=== PATIENT | male | born 1945 | race American Indian/Alaskan Native ===

== ENCOUNTER 2016-04-24 18:46 | Inpatient (IN) | payer MEDICARE ==
--- NOTE | 2016-04-24 20:43 | Emergency Department Report ---
Chief Complaint: Weakness Stated Complaint: LT LEG PAIN Time Seen by Provider: 04/24/16 20:40 - HPI History of Present Illness: Patient here complaining the left chest pressure and left leg pain. He reports that he's had several hip replacement and he has bursitis and arthritis. Patient also has history of cardiac disease with stent placement. He said he is always short of breath and takes medication for angina to include suture glycerin and indoor. He denies any nausea or vomiting. No radiation of pain to neck, face or arms. - ROS Review of Systems: All systems are negative unless stated in HPI above. - Exam Vital Signs: Vital Signs 04/24/16 20:25 Temperature 97.9 F Pulse Rate 82 Blood Pressure 114/56 O2 Sat by Pulse 100 Oximetry Physical Exam: GEN: This is a 70-year-old male well-nourished well-developed in no acute distress. CV: Is 1, S2. Regular rate and rhythm. EXT: No clubbing, cyanosis or edema. Pulses. MSE screening note: Focused history and physical exam performed. Due to findings the following was ordered:see [facility] ED Medical Decision Making - Medical Decision Making Medical decision making: Patient seen by provider in triage area. Appropriate protocol activated and patient to main ED to be seen by physician. ED Disposition for MSE Condition: Stable
[2016-04-24 21:36] LABS: Basophils % (Auto) 0.6 % (0.0-1.8); Eosinophils % (Auto) 1.7 % (0.0-4.3); Hemoglobin 11.9 gm/dl (11.8-15.2); Mean Corpuscular HGB Conc 34 % (32-34); Mean Corpuscular Hemoglobin 36 pg (28-32); Mean Corpuscular Volume 105 fl (84-94); Platelet Count 126 K/mm3 (140-440); Red Blood Count 3.33 M/mm3 (3.65-5.03); Red Cell Distribution Width 15.7 % (13.2-15.2); White Blood Count 5.3 K/mm3 (4.5-11.0)
[2016-04-24 22:03] LABS: BUN/Creatinine Ratio 14.16; Blood Urea Nitrogen 17 mg/dL (9-20); Calcium 8.4 mg/dL (8.4-10.2); Carbon Dioxide 22 mmol/L (22-30); Chloride 104.3 mmol/L (98-107); Glucose 146 mg/dL (75-100); Sodium 139 mmol/L (137-145)
[2016-04-24 22:04] LABS: Anion Gap 17 mmol/L
[2016-04-25] MEDS ORDERED: PLAVIX PO ONE (08:38)
[2016-04-25] MEDS ORDERED: NITRO-BID 2% TP ONE (08:41)
[2016-04-25] MEDS ORDERED: BABY ASPIRIN PO ONE (08:41)
--- NOTE | 2016-04-25 08:41 | Emergency Department Report ---
ED Chest Pain HPI - General Chief Complaint: Chest Pain Stated Complaint: chest pain Time Seen by Provider: 04/24/16 20:40 Source: patient Mode of arrival: Ambulatory Limitations: No Limitations - History of Present Illness Initial Comments: This patient arrives to the emergency department for evaluation of chest pain. He describes a midsternal tightness which resolves with nitroglycerin although the pain comes back in about 20 or 30 minutes. He states he's used multiple as many as that doesn't nitroglycerin over the course of the last day. He states that he has mild residual chest pain only at this point. He is status post 2 stents in 2015. 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 He does not see a display manager affiliated with [place] or [facility] as far as I can tell. In any case he has a few peripheral complaints to include chronic knee pain bilaterally but no calf or leg swelling. He's had no recent travel. He is taking his Plavix and aspirin. He does get spontaneous bruising and has one on his right upper arm. He does report weight loss of 15 pounds. He states occasionally he sees some rectal bleeding but not recently. He has never had a colonoscopy. Although the triage note says left side weakness. The patient denies this completely to me. He has no symptoms suggestive of a focal neurological syndrome. -: Gradual, days(s) (2-3 days) Onset: during rest Pain Location: substernal Pain Radiation: none Severity: moderate Quality: tightness Consistency: now resolved (now almost resolved) Improves With: nothing Worsens With: nothing re: denies: nausea, vomting, diaphoresis, dyspnea, sense of impending doom Other Symptoms: denies: cough, fever, syncope, rash, acid taste in mouth, leg swelling, palpitations, burping Treatments Prior to Arrival: aspirin - Related Data Previous Rx's Medication Instructions Recorded Last Taken Type ALBUTEROL Inhaler [ProAir HFA 1 puff PO DAILY #30 inha 09/01/15 Unknown Rx Inhaler] Arformoterol Nebu [Brovana Nebu] 15 mcg IH Q12HRT #30 day 09/01/15 Unknown Rx Aspirin 81 mg PO DAILY #30 09/01/15 Unknown Rx AtorvaSTATin [Lipitor] 40 mg PO DAILY #30 tablet 09/01/15 Unknown Rx Budesonide [Pulmicort Respules] 0.5 mg IH Q12HRT #30 day 09/01/15 Unknown Rx Carvedilol [Coreg] 25 mg PO BID #60 tablet 09/01/15 Unknown Rx Clopidogrel [Plavix] 75 mg PO QDAY #30 tablet 09/01/15 Unknown Rx Famotidine [Pepcid] 20 mg PO BID #60 tablet 09/01/15 Unknown Rx Fluticasone/Salmeterol [Advair 1 l PO DAILY #30 disk.w.dev 09/01/15 Unknown Rx Diskus 100-50 mcg] ISOSORBIDE MONOnitrate [Imdur ER] 60 mg PO QDAY #30 tablet 09/01/15 Unknown Rx Isosorbide Mononitrate 50 mg PO DAILY #30 tablet 09/01/15 Unknown Rx Lisinopril [Zestril TAB] 40 mg PO QDAY #30 tablet 09/01/15 Unknown Rx Spiriva Respimat 1 tab PO DAILY #1 unit 09/01/15 Unknown Rx Thiamine [Vitamin B-1] 100 mg PO QDAY #30 tablet 09/01/15 Unknown Rx oxyCODONE /ACETAMINOPHEN [Percocet 1 tab PO Q4H PRN #30 tablet 09/01/15 Unknown Rx 5/325 mg] Allergies Allergy/AdvReac Type Severity Reaction Status Date / Time No Known Allergies Allergy Unverified 04/19/15 22:57 ÓSCAR score - Óscar Score Age > 65: (1) Yes Aspirin use within the Past 7 Days: (1) Yes 3 or more CAD Risk Factors: (1) Yes 2 or more Angina events in past 24 hrs: (1) Yes Known CAD with more than 50% Stenosis: (1) Yes Elevated Cardiac Markers: (0) No ST Deviation Greater than 0.5mm: (0) No ÓSCAR Score: 5 ED Review of Systems ROS: Stated complaint: LT LEG PAIN Other details as noted in HPI Constitutional: other (weight loss). denies: chills, fever Eyes: denies: eye pain, eye discharge, vision change ENT: denies: ear pain, throat pain Respiratory: denies: cough, shortness of breath, wheezing Cardiovascular: chest pain. denies: palpitations Endocrine: no symptoms reported Gastrointestinal: hematochezia. denies: abdominal pain, nausea, diarrhea Genitourinary: denies: urgency, dysuria Musculoskeletal: other. denies: back pain, joint swelling, arthralgia Skin: other (chronic knee pain spontaneous ecchymoses on antiplatelet). denies : rash, lesions Neurological: denies: headache, weakness, paresthesias Psychiatric: denies: anxiety, depression Hematological/Lymphatic: denies: easy bleeding, easy bruising ED Past Medical Hx - Past Medical History Hx Hypertension: Yes Hx Heart Attack/AMI: Yes Hx Arthritis: Yes Hx Headaches / Migraines: No Hx Seizures: No Hx COPD: Yes Hx Dementia: No Additional medical history: Hep C, angina - Surgical History Hx Coronary Stent: Yes (2 placed at 2 separate times in 2014) - Social History Smoking Status: Current Every Day Smoker - Medications Home Medications: Home Medications Medication Instructions Recorded Confirmed Last Taken Type ALBUTEROL Inhaler [ProAir HFA 1 puff PO DAILY #30 inha 09/01/15 Unknown Rx Inhaler] Arformoterol Nebu [Brovana Nebu] 15 mcg IH Q12HRT #30 day 09/01/15 Unknown Rx Aspirin 81 mg PO DAILY #30 09/01/15 Unknown Rx AtorvaSTATin [Lipitor] 40 mg PO DAILY #30 tablet 09/01/15 Unknown Rx Budesonide [Pulmicort Respules] 0.5 mg IH Q12HRT #30 day 09/01/15 Unknown Rx Carvedilol [Coreg] 25 mg PO BID #60 tablet 09/01/15 Unknown Rx Clopidogrel [Plavix] 75 mg PO QDAY #30 tablet 09/01/15 Unknown Rx Famotidine [Pepcid] 20 mg PO BID #60 tablet 09/01/15 Unknown Rx Fluticasone/Salmeterol [Advair 1 l PO DAILY #30 disk.w.dev 09/01/15 Unknown Rx Diskus 100-50 mcg] ISOSORBIDE MONOnitrate [Imdur ER] 60 mg PO QDAY #30 tablet 09/01/15 Unknown Rx Isosorbide Mononitrate 50 mg PO DAILY #30 tablet 09/01/15 Unknown Rx Lisinopril [Zestril TAB] 40 mg PO QDAY #30 tablet 09/01/15 Unknown Rx Spiriva Respimat 1 tab PO DAILY #1 unit 09/01/15 Unknown Rx Thiamine [Vitamin B-1] 100 mg PO QDAY #30 tablet 09/01/15 Unknown Rx oxyCODONE /ACETAMINOPHEN [Percocet 1 tab PO Q4H PRN #30 tablet 09/01/15 Unknown Rx 5/325 mg] ED Physical Exam - General Limitations: No Limitations General appearance: alert, in no apparent distress - Head Head exam: Present: atraumatic, normocephalic. Absent: normal inspection - Eye Eye exam: Present: normal appearance, PERRL, EOMI. Absent: scleral icterus - ENT ENT exam: Present: normal exam, mucous membranes moist - Neck Neck exam: Present: normal inspection - Respiratory Respiratory exam: Present: normal lung sounds bilaterally. Absent: respiratory distress - Cardiovascular Cardiovascular Exam: Present: regular rate, normal rhythm. Absent: systolic murmur, diastolic murmur, rubs, gallop - GI/Abdominal GI/Abdominal exam: Present: soft, normal bowel sounds. Absent: distended, tenderness, guarding, rebound, rigid - Rectal Rectal exam: Present: deferred - Extremities Exam Extremities exam: Present: normal inspection - Back Exam Back exam: Present: normal inspection - Neurological Exam Neurological exam: Present: alert, oriented X3, CN II-XII intact. Absent: motor sensory deficit - Psychiatric Psychiatric exam: Present: normal affect, normal mood - Skin Skin exam: Present: warm, dry, intact, normal color. Absent: rash ED Course Vital Signs 04/24/16 04/24/16 04/25/16 20:25 20:42 01:32 Temperature 97.9 F 97.9 F Pulse Rate 82 70 Respiratory 18 18 Rate Blood Pressure 114/56 Blood Pressure 155/76 [Left] O2 Sat by Pulse 100 97 Oximetry 04/25/16 05:51 Temperature 97.4 F L Pulse Rate 64 Respiratory 18 Rate Blood Pressure Blood Pressure 139/79 [Left] O2 Sat by Pulse 97 Oximetry - Reevaluation(s) Reevaluation #1: The patient stated that he was admitted at [facility] and January. He tells me his troponins were elevated. He denies having a stress test or cardiac catheterization. Patient is also referring a 15 pound weight loss as well as intermittent rectal bleeding. I'm going to continue his Plavix a baby aspirin and hold off on Lovenox for now. 04/25/16 08:50 ED Medical Decision Making - Lab Data Result diagrams: 04/24/16 21:20 04/24/16 21:20 Laboratory Results - last 24 hr 04/24/16 04/24/16 04/24/16 21:20 21:20 23:09 WBC 5.3 RBC 3.33 L Hgb 11.9 Hct 35.0 L MCV 105 H MCH 36 H MCHC 34 RDW 15.7 H Plt Count 126 L Lymph % (Auto) 28.8 [place] % (Auto) 9.6 H Eos % (Auto) 1.7 Baso % (Auto) 0.6 Lymph # 1.5 [place] # 0.5 Eos # 0.1 Baso # 0.0 Seg Neutrophils % 59.3 Seg Neutrophils # 3.2 Sodium 139 Potassium 4.0 Chloride 104.3 Carbon Dioxide 22 Anion Gap 17 BUN 17 Creatinine 1.2 Estimated GFR > 60 BUN/Creatinine Ratio 14.16 Glucose 146 H Calcium 8.4 Troponin T < 0.010 < 0.010 04/25/16 02:52 WBC RBC Hgb Hct MCV MCH MCHC RDW Plt Count Lymph % (Auto) [place] % (Auto) Eos % (Auto) Baso % (Auto) Lymph # [place] # Eos # Baso # Seg Neutrophils % Seg Neutrophils # Sodium Potassium Chloride Carbon Dioxide Anion Gap BUN Creatinine Estimated GFR BUN/Creatinine Ratio Glucose Calcium Troponin T < 0.010 - EKG Data -: EKG Interpreted by Me EKG shows normal: sinus rhythm, axis, intervals, QRS complexes, ST-T waves - EKG Data Interpretation: nonspecific ST-T wave zach (motion artifact J-point elevation, no acute ischemic changes) - Radiology Data interpreted by me: Chest x-ray shows no acute process Critical care attestation.: If time is entered above; I have spent that time in minutes in the direct care of this critically ill patient, excluding procedure time. ED Disposition Clinical Impression: Unstable angina, Weight loss, Rectal bleeding Disposition: OP ADMITTED IP TO THIS HOSP Is pt being admited?: Yes Does the pt Need Aspirin: Yes Condition: Stable Instructions: Angina (ED) Time of Disposition: 08:52
[2016-04-25] MEDS ORDERED: PERCOCET 5/325 PO PRN (09:08)
--- NOTE | 2016-04-25 09:14 | History and Physical Report ---
History of Present Illness Date of examination: 04/25/16 Date of admission: 04/25/16 Chief complaint: Left-sided Chest pain for the last 2 days History of present illness: Very pleasant 70-year-old male patient with significant past medical history of coronary artery disease status post PCI, hypertension dyslipidemia history of COPD Presented to the emergency room with left-sided chest pain of 1-2 days duration Chest pain is intermittent, presented to squeezing type, greats between 3-4/10, not associated with nausea vomiting or diaphoresis No radiation, denies orthopnea paroxysmal nocturnal dyspnea, no aggravating and relieving symptoms Denies nausea vomiting or abdominal pain Patient is on aspirin and Plavix complaints complaints with his medications Patient also gets some vague history of rectal bleeding in the past however denies rectal bleeding now Never had colonoscopy in the past Hemo-dynamically stable, H&H is stable Past History Past Medical History: arthritis, CAD, COPD, hypertension, hyperlipidemia Past Surgical History: total hip replacement, PTCA, Other (cardiac catheterization/stent placement) Social history: lives with family, full code. denies: smoking, alcohol abuse, prescription drug abuse Family history: hypertension Medications and Allergies Allergies Allergy/AdvReac Type Severity Reaction Status Date / Time No Known Allergies Allergy Unverified 04/19/15 22:57 Home Medications Medication Instructions Recorded Confirmed Last Taken Type ALBUTEROL Inhaler [ProAir HFA 1 puff PO DAILY #30 inha 09/01/15 04/25/16 Unknown Rx Inhaler] Arformoterol Nebu [Brovana Nebu] 15 mcg IH Q12HRT #30 day 09/01/15 04/25/16 Unknown Rx Aspirin 81 mg PO DAILY #30 09/01/15 04/25/16 Unknown Rx AtorvaSTATin [Lipitor] 40 mg PO DAILY #30 tablet 09/01/15 04/25/16 Unknown Rx Budesonide [Pulmicort Respules] 0.5 mg IH Q12HRT #30 day 09/01/15 04/25/16 Unknown Rx Carvedilol [Coreg] 25 mg PO BID #60 tablet 09/01/15 04/25/16 Unknown Rx Clopidogrel [Plavix] 75 mg PO QDAY #30 tablet 09/01/15 04/25/16 Unknown Rx Famotidine [Pepcid] 20 mg PO BID #60 tablet 09/01/15 04/25/16 Unknown Rx Fluticasone/Salmeterol [Advair 1 l PO DAILY #30 disk.w.dev 09/01/15 04/25/16 Unknown Rx Diskus 100-50 mcg] ISOSORBIDE MONOnitrate [Imdur ER] 60 mg PO QDAY #30 tablet 09/01/15 04/25/16 Unknown Rx Lisinopril [Zestril TAB] 40 mg PO QDAY #30 tablet 09/01/15 04/25/16 Unknown Rx Spiriva Respimat 1 tab PO DAILY #1 unit 09/01/15 04/25/16 Unknown Rx oxyCODONE /ACETAMINOPHEN [Percocet 1 tab PO Q4H PRN #30 tablet 09/01/15 Unknown Rx 5/325 mg] Active Meds: Active Medications Arformoterol Tartrate (Brovana Nebu) 15 mcg [facility] Q[facility]HRT [facility] Atorvastatin Calcium (Lipitor) 40 mg PO DAILY [facility] Budesonide (Pulmicort) 0.5 mg IH Q12HRT [facility] Carvedilol (Coreg) 25 mg PO BID [facility] Clopidogrel Bisulfate (Plavix) 75 mg PO QDAY [facility] Famotidine (Pepcid) 20 mg PO BID [facility] Isosorbide Mononitrate (Imdur) 60 mg PO QDAY [facility] Lisinopril (Zestril) 40 mg PO QDAY [facility] Miscellaneous Medication (Aspirin) 81 mg PO DAILY [facility] Oxycodone/Acetaminophen (Percocet 5/325) 1 tab PO Q4H PRN PRN Reason: Pain, Moderate (4-6) Thiamine HCl (Vitamin B-1) 100 mg PO QDAY [facility] Review of Systems Constitutional: weakness, no weight loss, no weight gain, no fever, no chills Ears, nose, mouth and throat: no nasal congestion, no nasal discharge Cardiovascular: chest pain, no orthopnea, no palpitations, no syncope, no lightheadedness, no shortness of breath Respiratory: no cough with sputum, no shortness of breath Genitourinary Male: no dysuria, no hematuria Musculoskeletal: arthritis, no myalgias Integumentary: no rash, no lesions Neurological: no paralysis, no weakness, no seizures Psychiatric: no anxiety, no depression Endocrine: no cold intolerance, no heat intolerance, no polydipsia, no polyuria Hematologic/Lymphatic: no easy bruising, no easy bleeding Allergic/Immunologic: no urticaria, no allergic rhinitis Exam - Constitutional Vitals: Temp Pulse Resp BP Pulse Ox 97.4 F L 64 18 139/79 97 04/25/16 05:51 04/25/16 05:51 04/25/16 05:51 04/25/16 05:51 04/25/16 05:51 General appearance: Present: no acute distress, well-nourished - EENT Eyes: Present: PERRL, EOM intact - Neck Neck: Present: supple, normal ROM - Respiratory Respiratory effort: normal Respiratory: bilateral: diminished, negative: rales, rhonchi, wheezing - Cardiovascular Rhythm: regular Heart Sounds: Present: S1 & S2 - Extremities Extremities: no ischemia, pulses intact, pulses symmetrical Peripheral Pulses: within normal limits - Abdominal General gastrointestinal: Present: soft, non-tender, non-distended, normal bowel sounds - Integumentary Integumentary: Present: clear, warm - Musculoskeletal Musculoskeletal: strength equal bilaterally, generalized weakness - Psychiatric Psychiatric: appropriate mood/affect, cooperative - Neurologic Neurologic: CNII-XII intact, moves all extremities Results - Labs CBC & Chem 7: 04/24/16 21:20 04/24/16 21:20 Labs: Abnormal lab results 04/24/16 04/24/16 Range/Units 21:20 21:20 RBC 3.33 L (3.65-5.03) M/mm3 Hct 35.0 L (35.5-45.6) % MCV 105 H (84-94) fl MCH 36 H (28-32) pg RDW 15.7 H (13.2-15.2) % Plt Count 126 L (140-440) K/mm3 [place] % (Auto) 9.6 H (0.0-7.3) % Glucose 146 H (75-100) mg/dL Assessment and Plan --Chest pain rule out acute coronary syndrome Serial cardiac enzymes, aspirin and Plavix beta blockers NOHEMI inhibitor is nitrates and statins Serial EKGs, echocardiogram Nuclear stress test for reversible ischemia, constant cardiology evaluation if needed --History of coronary artery disease status post multiple stents Continue antiplatelets aspirin and Plavix at the cardiac medications --Hypertension well-controlled Resume home antihypertensives and when necessary medications --History of COPD well compensated Oxygen and nebulizers as needed --History of osteoarthritis, pain medications, physical therapy occupational therapy --Dyslipidemia; stable on lipid-lowering medications --DVT prophylaxis with Lovenox --Full CODE STATUS --DC planning. Case management Closely monitor the patient and adjust the management as needed Follow stress test, if negative and patient is stable may discharge home tomorrow Plan of care discussed with the patient he has physician as well as the nurse
[2016-04-25 09:31] LABS: INR 1.12 (0.87-1.13)
[2016-04-25 09:32] LABS: Partial Thromboplastin Time 28.9 Sec. (24.2-36.6)
[2016-04-25 09:41] LABS: Albumin 3.1 g/dL (3.9-5); Bilirubin,Direct 0.3 mg/dL (0-0.2); Bilirubin,Indirect 0.3 mg/dL; Bilirubin,Total 0.6 mg/dL (0.1-1.2); Magnesium 1.9 mg/dL (1.7-2.3); Total Protein 6.2 g/dL (6.3-8.2)
--- NOTE | 2016-04-25 09:50 | XRay Report ---
Single view chest: Compared to 08/28/15. History: Chest discomfort. Findings: Normal cardiomediastinal silhouette. Trachea is midline. No consolidation, pneumothorax or pleural effusion. Impression: No acute cardiopulmonary findings.
[2016-04-25] MEDS ORDERED: IMDUR PO SCH (10:00)
[2016-04-25] MEDS ORDERED: BABY ASPIRIN PO SCH (10:00)
[2016-04-25] MEDS ORDERED: VITAMIN B-1 PO SCH (10:00)
[2016-04-25] MEDS ORDERED: PEPCID PO SCH (10:00)
[2016-04-25] MEDS ORDERED: HALFPRIN EC PO SCH (10:00)
[2016-04-25] MEDS ORDERED: COREG PO SCH (10:00)
[2016-04-25] MEDS ORDERED: PLAVIX PO SCH (10:00)
[2016-04-25] MEDS ORDERED: LOVENOX SUB-Q SCH (10:00)
[2016-04-25] MEDS ORDERED: ZESTRIL PO SCH (10:00)
[2016-04-25] MEDS ORDERED: PROAIR IH PRN (14:10)
[2016-04-25] MEDS ORDERED: PROVENTIL IH PRN (14:13)
[2016-04-25] MEDS: PERCOCET 5/325 PO PRN (17:32)
[2016-04-25] MEDS: BROVANA NEBU IH SCH (19:26)
[2016-04-25] MEDS ORDERED: PULMICORT IH SCH (20:00)
[2016-04-25] MEDS ORDERED: BROVANA NEBU IH SCH (20:00)
[2016-04-25] MEDS: MORPHINE IV PRN (20:43)
[2016-04-25] MEDS: COREG PO SCH (22:40)
[2016-04-25] MEDS: PEPCID PO SCH (22:40)
--- NOTE | 2016-04-25 23:49 | Admit Criteria Form ---
Admission Criteria Documentation: CARDIOLOGY GRG Clinical Indications for Admission to Inpatient Care ( Place 'X' for any and all applicable criteria): Hospital admission is needed for appropriate care of the patient because of ANY ONE of the following (1): [ ] I. Hemodynamic instability as indicated by ALL of the following (1)(2)(3) (4)(5) [ ]a) Vital signs or other findings not as expected for chronic patient condition or baseline [ ]b) Instability indicated by ANY ONE of the following: [ ]i) Hypotension [ ]ii) Symptomatic Tachycardia unresponsive to treatment ( e.g., analgesia, fluids, sedation as indicated) [ ]iii) Inadequate perfusion indicated by ANY ONE of the following: [ ] 1) Lactic acidosis (> 2 mmol/L) [ ] 2) New abnormal capillary refill (> 3 seconds) [ ] 3) Reduced urine output [ ] 4) New altered mental status [ ]iv) Orthostatic vital sign changes unresponsive to treatment (e.g., fluids) [ ]v) IV inotropic or vasopressor medication required to maintain adequate blood pressure or perfusion [ ] II. Severe heart failure as indicated by ANY ONE of the following(17)(18) [ ]a) Respiratory distress [ ]b) Hypotension [ ]c) Anasarca (refractory to outpatient therapy) [ ]d) Cardiac arrhythmias of immediate concern [ ]e) Myocardial ischemia [ ] III. Cardiac arrhythmias or findings of immediate concern indicated by ANY ONE of the following (19)(20): [ ] a) Heart rhythms that are inherently dangerous or unstable indicated by ANY ONE of the following (21)(22)(23): [ ] i) Resuscitated ventricular fibrillation or cardiac arrest [ ] ii) Ventricular escape rhythm [ ] iii) Sustained ventricular tachycardia (30 seconds or more of ventricular rhythm at greater than 100 beats per minute) [ ] iv) Nonsustained ventricular tachycardia and ANY ONE of the following: [ ] 1) Suspected cardiac ischemia as cause or consequence of ventricular tachycardia [ ] 2) In setting of acute myocarditis [ ] b) Unstable cardiac conduction defects indicated by ANY ONE of the following(23)(24)(25) [ ] i) Type II second-degree atrioventricular block [ ]ii) Third-degree atrioventricular block [ ]iii) New-onset left bundle branch block with suspected myocardial ischemia [ ]c) Any heart rhythm and ANY ONE of the following (21)(22)(26)(27) (28) [ ] i) Continuous long-term ECG monitoring needed (e.g., initiation of drug requiring monitoring for more than 24 hours) [ ] ii) Patient has automatic implanted cardioverter defibrillator that is repeatedly firing, malfunctioning, or in need of immediate adjustment of settings beyond the scope of ambulatory or observation care [ ]d) Heart rhythms of concern due to ANY ONE of the following: [ ] i) Hypotension [ ] ii) Respiratory distress [ ] iii) Association with other significant symptoms (e.g., bradycardia with syncope or ongoing dizziness, supraventricular tachycardia with chest pain (14)(15)(17) [ ] IV. Monitoring for cardiac contusion beyond the scope of observation care needed [A](30)(31)(32) [ ] V. Surgical or device complication (e.g., valve replacement complication , pacemaker dysfunction) (35)(41)(44)(45)(46) [ ] . Inpatient palliative care needed. [B](49) Also use Inpatient Palliative Care Criteria [ ] VII. Nonbacterial thrombotic (marantic) endocarditis (36)(43)(47)(48) [ X] VIII. Cardiology condition, symptom, or finding for which emergency and observation care has failed or are not considered appropriate. [ ] IX. Acute valvular disease requiring inpatient as indicated by ANY ONE of the following (41) [ ]a) Acute valvular regurgitation (42) [ ]b) Noninfectious valvulitis (43) [ ]c) Obstructive valve thrombosis [ ]d) Paravalvular leak [ ]e) Other significant valvular disorder remaining after emergency or observation level of care (as appropriate) [ ]X. Pericardial disease requiring inpatient treatment as indicated by ANY ONE of the following (33)(34)(35)(36)(37) [ ]a) Suspected tamponade (38)(39)(40) [ ]b) Hemopericardium [ ]c) Other significant pericardial disorder remaining after emergency or observation level of care (as appropriate) [ ] XI. Cardiac ischemia beyond scope of emergency and observation care. [ ] XII. Hypertension requiring inpatient treatment as indicated by ANY ONE of the following (6)(7)(8) [ ]a) SBP greater than 220 mm Hg or DBP greater than 120 mmHg despite treatment [ ]b) SBP greater than 140 mm Hg or DBP greater than 100 mm Hg with evidence of acute end organ damage as indicated by ANY ONE of the following [ ] i) Altered mental status [ ] ii) Acute renal failure as indicated by new onset of ANY ONE of the following (9)(10)(11)(12)(13) [ ]1) 3-fold rise in serum creatinine from baseline [ ]2) Serum creatinine greater than 4 mg/dL ( 354 micromoles/L) with acute rise greater than 0.5 mg/dL (44.2 micromoles/L) [ ]3) Reduction of more than 75% in estimated glomerular filtration rate from baseline [ ]4) Estimated glomerular filtration rate less than 35 mL/min/1.73m2 (0.59 mL/sec/1.73m2) in child up to 18 years of age [ ]5) Cessation of urine output indicated by ALL of the following [ ]A. Adequate volume status [ ]B. Inadequate urine output as indicated by ANY ONE of the following [ ]a. Urine output less than 0.3 mL/kg/hr for 24 hours [ ]b. Anuria (urine output less than 0.1 mL/kg/hr) for 12 hours [ ] iii) Aortic dissection [ ] iv) Myocardial Ischemia [ ] v) Left ventricular heart failure [ ]vi) Retinal Hemorrhage [ ]vii) Other significant finding [ ]c) Hypertension in child requiring inpatient treatment as indicated by ALL of the following(14)(15)(16) [ ] i) Outpatient treatment not effective, not available, or not appropriate [ ]ii) SBP or DBP greater than 95th percentile for age [ ]iii) Evidence of acute end organ damage as indicated by ANY ONE of the following [ ]1) Altered mental status [ ]2) Acute renal failure as indicated by new onset of ANY ONE of the following(9)(10)(11)(12)(13) [ ]A. 3-fold rise in serum creatinine from baseline [ ]B. Serum creatinine greater than 4 mg/dL (354 micromoles/L) with acute rise greater than 0.5 mg/dL (44.2 micromoles/L) [ ]C. Reduction of more than 75% in estimated glomerular filtration rate from baseline [ ]D. Estimated glomerular filtration rate less than 35 mL/min/1.73m2 (0.59 mL/sec/1.73m2) in child up to 18 years of age [ ]E. Cessation of urine output indicated by ALL of the following [ ]a. Adequate volume status [ ]b. Inadequate urine output as indicated by ANY ONE of the following [ ]i) Urine output less than 0.3 mL/kg/hr for 24 hours [ ]ii) Anuria ( urine output less than 0.1 mL/kg/hr) for 12 hours [ ]3) Severe headache [ ]4) Visual disturbance [ ]5) Retinal hemorrhage [ ]6) Other significant finding [ ]XIII. Complications of transplanted heart indicated by ANY ONE of the following(61): [ ]a) Acute graft rejection requiring inpatient management (eg, intravenous immunosuppression)(62)(63) [ ]b) Acute graft heart failure indicated by ANY ONE of the following(64): [ ]i) Hemodynamic instability [ ]ii) Cardiac arrhythmias of immediate concern [ ]iii) Pulmonary edema that is very severe (eg, mechanical ventilation needed, imminent or likely, need for 100% oxygen to keep oxygen saturation above 90%) [ ]iv) Pulmonary edema that is persistent as indicated by ALL of the following: [ ]1) New need for oxygen therapy to keep oxygen saturation above 90% (or increased FiO2 need from baseline) [ ]2) Has not improved sufficiently with emergency department or observation care IV diuretics or other heart failure treatments[E] [ ]v) Altered mental status that is severe or persistent [ ]vi) Increased creatinine (new on laboratory test) with reduction of more than 50% in estimated glomerular filtration rate from baseline [ ]vii) Progressively (ongoing) rising creatinine (known from past laboratory test) with reduction of more than 25% in estimated glomerular filtration rate from baseline [ ]viii) Acute renal failure [ ]ix) Acute peripheral ischemia (eg, examination shows pulseless, cool, mottled, or cyanotic extremity) [ ]x) Pulmonary artery catheter monitoring needed [ ]xi) Other sign or symptom of heart failure requiring inpatient treatment (ie, too severe or not responsive to outpatient and observation care treatment) [ ]c) Infection requiring inpatient management (eg, Hemodynamic instability, need for intravenous antimicrobial treatment)(66)(67)(68)(69)(70) [ ]d) Cardiac allograft vasculopathy requiring inpatient management ( eg evidence of cardiac ischemia)(71) [ ]e) Other complication of transplanted heart (eg, stroke, severe pulmonary hypertension, severe valvular dysfunction) requiring inpatient management(72) The original [facility] [employer] content created by [facility] [employer] has been revised. The portions of the content which have been revised are identified through the use of italic text or in bold, and [facility] has neither reviewed nor approved the modified material. All other unmodified content is copyright [facility] [employer]. Please see references footnoted in the original [facility] [employer] edition 2016 Admission Criteria Met: Yes
[2016-04-26] MEDS: PERCOCET 5/325 PO PRN ×3 (00:07→21:59)
[2016-04-26] MEDS ORDERED: LEXISCAN IV ONE ×2 (08:08→10:11)
[2016-04-26] MEDS: MORPHINE IV PRN ×2 (08:42→18:28)
[2016-04-26] MEDS: ZESTRIL PO SCH (10:00)
[2016-04-26] MEDS: COREG PO SCH ×2 (10:00→22:01)
[2016-04-26] MEDS: IMDUR PO SCH (10:00)
[2016-04-26] MEDS: PEPCID PO SCH ×2 (10:00→22:01)
[2016-04-26] MEDS: BROVANA NEBU IH SCH ×2 (11:30→20:07)
[2016-04-26] MEDS: SPIRIVA IH SCH (11:30)
--- NOTE | 2016-04-26 15:06 | Progress Note ---
Assessment and Plan Assessment and plan: --Chest pain rule out acute coronary syndrome Cardiac enzymes are negative, status post stress test pending report Continue current cardiac medications patient symptoms significantly improved --History of coronary artery disease status post PCI Continue aspirin and Plavix beta blockers NOHEMI inhibitor is nitrates and statins Follow stress test, consider cardiology evaluation if needed --Patient gave history of rectal bleeding in the past However no evidence of rectal bleeding now, patient can have outpatient colonoscopy and GI workup Check stool for occult blood, consider GI evaluation if positive --Hypertension; moderate control Continue current antihypertensives and when necessary medications --History of osteoarthritis/bilateral hip replacements Supportive care, physical therapy occupational therapy if needed --Dyslipidemia; continue lipid-lowering medications --DVT prophylaxis; with Lovenox Increase ambulation as tolerated Possible discharge in 1-2 days if stable History Interval history: Patient seen and evaluated medical records reviewed No new events reported by the nursing staff Patient underwent nuclear stress test, pending report Patient denies any chest pain or shortness of breath Complains of some arthritis pain Hospitalist Physical - Constitutional Vitals: Temp Pulse Resp BP Pulse Ox 97.7 F 70 14 160/72 96 04/26/16 09:10 04/26/16 11:05 04/26/16 09:10 04/26/16 11:05 04/26/16 09:10 General appearance: Present: no acute distress, well-nourished - EENT Eyes: Present: PERRL, EOM intact - Neck Neck: Present: supple, normal ROM - Respiratory Respiratory effort: normal Respiratory: bilateral: diminished, negative: rales, rhonchi, wheezing - Cardiovascular Rhythm: regular Heart Sounds: Present: S1 & S2 - Extremities Extremities: no ischemia, pulses intact, pulses symmetrical Peripheral Pulses: within normal limits - Abdominal General gastrointestinal: soft, non-tender, non-distended, normal bowel sounds - Integumentary Integumentary: Present: clear, warm - Psychiatric Psychiatric: appropriate mood/affect, cooperative - Neurologic Neurologic: CNII-XII intact, moves all extremities Results - Labs CBC & Chem 7: 04/24/16 21:20 04/24/16 21:20 Labs: Laboratory Last Values WBC 5.3 K/mm3 (4.5-11.0) 04/24/16 21:20 RBC 3.33 M/mm3 (3.65-5.03) L 04/24/16 21:20 Hgb 11.9 gm/dl (11.8-15.2) 04/24/16 21:20 Hct 35.0 % (35.5-45.6) L 04/24/16 21:20 MCV 105 fl (84-94) H 04/24/16 21:20 MCH 36 pg (28-32) H 04/24/16 21:20 MCHC 34 % (32-34) 04/24/16 21:20 RDW 15.7 % (13.2-15.2) H 04/24/16 21:20 Plt Count 126 K/mm3 (140-440) L 04/24/16 21:20 Lymph % (Auto) 28.8 % (13.4-35.0) 04/24/16 21:20 [place] % (Auto) 9.6 % (0.0-7.3) H 04/24/16 21:20 Eos % (Auto) 1.7 % (0.0-4.3) 04/24/16 21:20 Baso % (Auto) 0.6 % (0.0-1.8) 04/24/16 21:20 Lymph # 1.5 K/mm3 (1.2-5.4) 04/24/16 21:20 [place] # 0.5 K/mm3 (0.0-0.8) 04/24/16 21:20 Eos # 0.1 K/mm3 (0.0-0.4) 04/24/16 21:20 Baso # 0.0 K/mm3 (0.0-0.1) 04/24/16 21:20 Seg Neutrophils % 59.3 % (40.0-70.0) 04/24/16 21:20 Seg Neutrophils # 3.2 K/mm3 (1.8-7.7) 04/24/16 21:20 PT 14.3 Sec. (12.2-14.9) 04/25/16 09:09 INR 1.12 (0.87-1.13) 04/25/16 09:09 APTT 28.9 Sec. (24.2-36.6) 04/25/16 09:09 Sodium 139 mmol/L (137-145) 04/24/16 21:20 Potassium 4.0 mmol/L (3.6-5.0) 04/24/16 21:20 Chloride 104.3 mmol/L (98-107) 04/24/16 21:20 Carbon Dioxide 22 mmol/L (22-30) 04/24/16 21:20 Anion Gap 17 mmol/L 04/24/16 21:20 BUN 17 mg/dL (9-20) 04/24/16 21:20 Creatinine 1.2 mg/dL (0.8-1.5) 04/24/16 21:20 Estimated GFR > 60 ml/min 04/24/16 21:20 BUN/Creatinine Ratio 14.16 % 04/24/16 21:20 Glucose 146 mg/dL (75-100) H 04/24/16 21:20 Calcium 8.4 mg/dL (8.4-10.2) 04/24/16 21:20 Magnesium 1.9 mg/dL (1.7-2.3) 04/25/16 09:09 Total Bilirubin 0.6 mg/dL (0.1-1.2) 04/25/16 09:09 Direct Bilirubin 0.3 mg/dL (0-0.2) H 04/25/16 09:09 Indirect Bilirubin 0.3 mg/dL 04/25/16 09:09 AST 95 units/L (5-40) H 04/25/16 09:09 ALT 110 units/L (7-56) H 04/25/16 09:09 Alkaline Phosphatase 210 units/L (35-129) H 04/25/16 09:09 Troponin T < 0.010 ng/mL (0.00-0.029) 04/25/16 02:52 NT-Pro-B Natriuret Pep 84.65 pg/mL (0-900) 04/25/16 09:09 Total Protein 6.2 g/dL (6.3-8.2) L 04/25/16 09:09 Albumin 3.1 g/dL (3.9-5) L 04/25/16 09:09 Albumin/Globulin Ratio 1.0 % 04/25/16 09:09
[2016-04-26] MEDS: LOVENOX SUB-Q SCH (22:00)
--- NOTE | 2016-04-26 22:14 | Treadmill Report ---
THALLIUM STRESS TEST LEFT VENTRICLE: Left ventricular chamber size is within normal. Perfusion study demonstrates a moderate size, predominately fixed basal and mid inferior defect. The defect is of moderate intensity. On the resting perfusion study, there is a very mild degree of reversibility. Gated analysis demonstrates normal left ventricular systolic function, ejection fraction 55%. CONCLUSION: Study demonstrates a predominantly fixed inferior wall defect, diaphragmatic attenuation artifact versus an old inferior myocardial infarction. A small degree of reversible inferior ischemia cannot be excluded. Clinical correlation is recommended. [facility]# [id number] [place]/NTS
[2016-04-27] MEDS: SPIRIVA IH SCH ×2 (07:51→16:52)
[2016-04-27] MEDS: BROVANA NEBU IH SCH ×2 (07:51→19:09)
[2016-04-27] MEDS: BABY ASPIRIN PO SCH (09:39)
[2016-04-27] MEDS: ZESTRIL PO SCH (09:39)
[2016-04-27] MEDS: IMDUR PO SCH (09:39)
[2016-04-27] MEDS: PEPCID PO SCH ×2 (09:40→21:09)
[2016-04-27] MEDS: PLAVIX PO SCH (09:40)
[2016-04-27] MEDS: PERCOCET 5/325 PO PRN ×2 (09:40→21:09)
[2016-04-27] MEDS: COREG PO SCH ×2 (09:40→21:09)
--- NOTE | 2016-04-27 10:57 | Progress Note ---
Assessment and Plan Assessment and plan: --Left shoulder pain possible osteoarthritis versus frozen shoulder Supportive care and pain medications, muscle relaxants if needed, check x-ray shoulder to rule out any acute abnormalities Consider orthopedic evaluation if needed inpatient versus outpatient --Chest pain Negative stress test, continue current management Patient still has intermittent chest pain probably costochondritis and Gastroesophageal reflux disease Add pain medications as well as Pepcid to the regimen --History of coronary artery disease status post PCI Continue aspirin and Plavix beta blockers NOHEMI inhibitor is nitrates and statins --Patient gave history of rectal bleeding in the past No evidence of bleeding H&H is stable, patient will follow with GI upon discharge for outpatient evaluation of questionable rectal bleeding --Hypertension; moderate control Continue current antihypertensives and when necessary medications --History of osteoarthritis/bilateral hip replacements Supportive care, physical therapy occupational therapy if needed --Dyslipidemia; continue lipid-lowering medications --DVT prophylaxis; with Lovenox Increase ambulation as tolerated Follow x-ray shoulder if negative and patient is stable may discharge home tomorrow with possible home health and PT Plan of care discussed with the patient as well as his nurse History Interval history: Patient seen and evaluated medical records reviewed No new events reported by the nursing staff Patient underwent nuclear stress test yesterday patient not show any acute findings Complaints of severe left shoulder pain and distracting movements for the last 1 week Denies chest pain or shortness of breath Alert awake oriented 3 not in acute distress Vital signs reviewed stable Hospitalist Physical - Constitutional Vitals: Temp Pulse Resp BP Pulse Ox 98.1 F 68 18 131/60 98 04/27/16 09:06 04/27/16 09:43 04/27/16 09:43 04/27/16 09:40 04/27/16 09:43 General appearance: Present: no acute distress, well-nourished - EENT Eyes: Present: PERRL, EOM intact - Neck Neck: Present: supple, normal ROM - Respiratory Respiratory effort: normal Respiratory: bilateral: diminished, negative: rales, rhonchi, wheezing - Cardiovascular Rhythm: regular Heart Sounds: Present: S1 & S2 - Extremities Extremities: no ischemia, pulses intact, pulses symmetrical, abnormal (left shoulder pain on movement, restricted movement and stiffness of the joint) - Abdominal General gastrointestinal: soft, non-tender, non-distended, normal bowel sounds - Integumentary Integumentary: Present: clear, warm - Psychiatric Psychiatric: appropriate mood/affect, cooperative - Neurologic Neurologic: CNII-XII intact, moves all extremities Results - Labs CBC & Chem 7: 04/24/16 21:20 04/24/16 21:20 Labs: Laboratory Last Values WBC 5.3 K/mm3 (4.5-11.0) 04/24/16 21:20 RBC 3.33 M/mm3 (3.65-5.03) L 04/24/16 21:20 Hgb 11.9 gm/dl (11.8-15.2) 04/24/16 21:20 Hct 35.0 % (35.5-45.6) L 04/24/16 21:20 MCV 105 fl (84-94) H 04/24/16 21:20 MCH 36 pg (28-32) H 04/24/16 21:20 MCHC 34 % (32-34) 04/24/16 21:20 RDW 15.7 % (13.2-15.2) H 04/24/16 21:20 Plt Count 126 K/mm3 (140-440) L 04/24/16 21:20 Lymph % (Auto) 28.8 % (13.4-35.0) 04/24/16 21:20 [place] % (Auto) 9.6 % (0.0-7.3) H 04/24/16 21:20 Eos % (Auto) 1.7 % (0.0-4.3) 04/24/16 21:20 Baso % (Auto) 0.6 % (0.0-1.8) 04/24/16 21:20 Lymph # 1.5 K/mm3 (1.2-5.4) 04/24/16 21:20 [place] # 0.5 K/mm3 (0.0-0.8) 04/24/16 21:20 Eos # 0.1 K/mm3 (0.0-0.4) 04/24/16 21:20 Baso # 0.0 K/mm3 (0.0-0.1) 04/24/16 21:20 Seg Neutrophils % 59.3 % (40.0-70.0) 04/24/16 21:20 Seg Neutrophils # 3.2 K/mm3 (1.8-7.7) 04/24/16 21:20 PT 14.3 Sec. (12.2-14.9) 04/25/16 09:09 INR 1.12 (0.87-1.13) 04/25/16 09:09 APTT 28.9 Sec. (24.2-36.6) 04/25/16 09:09 Sodium 139 mmol/L (137-145) 04/24/16 21:20 Potassium 4.0 mmol/L (3.6-5.0) 04/24/16 21:20 Chloride 104.3 mmol/L (98-107) 04/24/16 21:20 Carbon Dioxide 22 mmol/L (22-30) 04/24/16 21:20 Anion Gap 17 mmol/L 04/24/16 21:20 BUN 17 mg/dL (9-20) 04/24/16 21:20 Creatinine 1.2 mg/dL (0.8-1.5) 04/24/16 21:20 Estimated GFR > 60 ml/min 04/24/16 21:20 BUN/Creatinine Ratio 14.16 % 04/24/16 21:20 Glucose 146 mg/dL (75-100) H 04/24/16 21:20 Calcium 8.4 mg/dL (8.4-10.2) 04/24/16 21:20 Magnesium 1.9 mg/dL (1.7-2.3) 04/25/16 09:09 Total Bilirubin 0.6 mg/dL (0.1-1.2) 04/25/16 09:09 Direct Bilirubin 0.3 mg/dL (0-0.2) H 04/25/16 09:09 Indirect Bilirubin 0.3 mg/dL 04/25/16 09:09 AST 95 units/L (5-40) H 04/25/16 09:09 ALT 110 units/L (7-56) H 04/25/16 09:09 Alkaline Phosphatase 210 units/L (35-129) H 04/25/16 09:09 Troponin T < 0.010 ng/mL (0.00-0.029) 04/25/16 02:52 NT-Pro-B Natriuret Pep 84.65 pg/mL (0-900) 04/25/16 09:09 Total Protein 6.2 g/dL (6.3-8.2) L 04/25/16 09:09 Albumin 3.1 g/dL (3.9-5) L 04/25/16 09:09 Albumin/Globulin Ratio 1.0 % 04/25/16 09:09
--- NOTE | 2016-04-27 14:02 | XRay Report ---
LEFT SHOULDER: History: Left shoulder pain. Moderate osteoarthritic changes are identified at the glenohumeral joint and a.c. joint. There is prominent inferior spurring from the a.c. joint. No evidence for fracture, dislocation or ligamentous injury. The soft tissues are unremarkable. IMPRESSION: Osteoarthritic changes. No acute process.
[2016-04-27] MEDS: LOVENOX SUB-Q SCH (21:10)
[2016-04-28] MEDS: BROVANA NEBU IH SCH (07:54)
[2016-04-28] MEDS: SPIRIVA IH SCH (08:10)
[2016-04-28] MEDS: IMDUR PO SCH (09:54)
[2016-04-28] MEDS: PLAVIX PO SCH (09:54)
[2016-04-28] MEDS: MORPHINE IV PRN (09:55)
[2016-04-28] MEDS: COREG PO SCH (09:55)
[2016-04-28] MEDS: PEPCID PO SCH (09:55)
[2016-04-28] MEDS: ZESTRIL PO SCH (09:55)
[2016-04-28] MEDS: BABY ASPIRIN PO SCH (09:55)
[2016-04-28 11:25] VITALS: BP 141/63
--- NOTE | 2016-04-28 12:27 | Discharge Summary ---
Providers - Providers Date of Admission: 04/25/16 09:14 Date of discharge: 04/28/16 Attending physician: ANMU DAS Primary care physician: [employer]IONAL MARKETING DIRECTOR Hospitalization Reason for admission: left-sided chest pain and left shoulder pain Condition: Stable Pertinent studies: Treadmill stress test; predominantly fixed inferior wall defect small degree of reversible inferior ischemia cannot be excluded left ventricular ejection fraction 55% Chest x-ray; no acute abnormalities Left shoulder x-ray; osteoarthritis, no acute findings Hospital course: Final diagnosis: -Left shoulder pain possible osteoarthritis versus frozen shoulder --Chest pain , Negative stress test, continue current management --History of coronary artery disease status post PCI --Patient gave history of rectal bleeding in the past, No evidence of bleeding H &H is stable, --Hypertension; moderate control --History of osteoarthritis/bilateral hip replacements --Dyslipidemia; continue lipid-lowering medications Very pleasant 70-year-old male patient with history of coronary artery disease status post PCI hypertension dyslipidemia COPD was admitted through emergency room with left-sided chest pain and left shoulder pain Admitted to the hospital symptomatically managed, underwent left shoulder x-ray no acute abnormality noted Patient also had some nuclear stress test negative for reversible ischemia and normal left ventricular function and ejection fraction Chest x-ray no acute abnormality noted Patient's chest pain could be atypical secondary to gastroesophageal reflux disease as well as musculoskeletal, symptomatically managed Patient also has osteoarthritis of the knee and the shoulder, patient advised to see orthopedic surgeon as outpatient for further evaluation and management Patient verbalized understanding Today patient is comfortable in bed alert awake oriented 3 not in acute distress Vital signs are stable denies chest pain or shortness of breath [id number] evaluation and physical examination done by me prior to discharge is unremarkable as detailed below Disposition: DISCHARGED TO HOME OR SELFCARE Time spent for discharge: 32 Core Measure Documentation - Palliative Care Palliative Care/ Comfort Measures: Not Applicable - Core Measures Any of the following diagnoses?: none Exam - Constitutional Vitals: Temp Pulse Resp BP Pulse Ox 98.4 F 57 L 18 141/63 92 04/28/16 11:24 04/28/16 11:24 04/28/16 11:24 04/28/16 11:24 04/28/16 11:24 General appearance: Present: no acute distress, well-nourished - EENT Eyes: Present: PERRL, EOM intact - Neck Neck: Present: supple, normal ROM - Respiratory Respiratory effort: normal Respiratory: bilateral: diminished, negative: rales, rhonchi, wheezing - Cardiovascular Rhythm: regular Heart Sounds: Present: S1 & S2 - Extremities Extremities: no ischemia, pulses intact, pulses symmetrical, abnormal ( arthritis right knee) - Abdominal General gastrointestinal: Present: soft, non-tender, non-distended, normal bowel sounds - Integumentary Integumentary: Present: clear, warm - Musculoskeletal Musculoskeletal: strength equal bilaterally, other (arthritis bilaterally) - Psychiatric Psychiatric: appropriate mood/affect, cooperative - Neurologic Neurologic: CNII-XII intact, moves all extremities Plan Activity: advance as tolerated Diet: other (cardiac diet) Additional Instructions: Patient advised to see his private orthopedic surgeon for his osteoarthritis of the knee Follow up with: PRIMARY MD STEVIE [Primary Care Provider] - 3-5 Days OSIRIS CALLES MD [Staff Physician] - 7 Days
== END 2016-04-28 15:24 | disposition home or self-care (01) | DRG 206 ==
LOC: ED 18:46 → 4A 04-25 09:14
PROVIDERS: ADMIT Internal Medicine; ATTEND Internal Medicine
DX: M94.0 Chondrocostal junction syndrome [Tietze] (principal); K21.9 Gastro-esophageal reflux disease without esophagitis; I10 Essential (primary) hypertension; E78.5 Hyperlipidemia, unspecified; J44.9 Chronic obstructive pulmonary disease, unspecified; F17.210 Nicotine dependence, cigarettes, uncomplicated; I25.10 Atherosclerotic heart disease of native coronary artery without angina pectoris; M16.0 Bilateral primary osteoarthritis of hip; M19.012 Primary osteoarthritis, left shoulder; Z86.19 Personal history of other infectious and parasitic diseases; Z82.49 Family history of ischemic heart disease and other diseases of the circulatory system
CPT/HCPCS: 36415; 71010; 78452; 80048; 80074; 83735; 83880; 84484; 85025; 85610; 85730; 93005; 93010; 93017; 94640; 99285; A9270-GY; A9502; J1650; J2270; J2785